=== PATIENT | female | born 1950 | race Caucasian/White ===

== ENCOUNTER 2022-04-10 07:57 | Day surgery (SDC) | payer OTHER ==
[~2022-04-10] VITALS: Ht 162.6 cm; Wt 77.1 kg
[2022-04-10] MEDS ORDERED: BENZOCAINE 20% GEL 32 GM BOTTLE MM ONE (07:58)
[2022-04-10] MEDS ORDERED: NS 100 ML BAG IV ONE (07:58)
[2022-04-10] MEDS ORDERED: ARTICAINE HCL/EPINEPHRINE 4%/1:200,000 BIT 1.7 ML CARTRIDGE IJ ONE (07:58)
[2022-04-10] MEDS ORDERED: NS IRRIG SOLN 1000 ML IR ONE (07:58)
[2022-04-10 14:10] VITALS: BP_SYST 132
== END 2022-04-10 12:10 | disposition home or self-care (01) ==
LOC: SDS 07:57 → SMU 08:04 → SDS 12:10
PROVIDERS: ATTEND Dentist General Practice
DX: M27.2 Inflammatory conditions of jaws (principal); M89.8X0 Other specified disorders of bone, multiple sites; K05.5 Other periodontal diseases; M26.603 Bilateral temporomandibular joint disorder, unspecified; I24.9 Acute ischemic heart disease, unspecified; K08.429 Partial loss of teeth due to periodontal diseases, unspecified class; K05.222 Aggressive periodontitis, generalized, moderate; Z86.73 Personal history of transient ischemic attack (TIA), and cerebral infarction without residual deficits; Z99.2 Dependence on renal dialysis; M06.9 Rheumatoid arthritis, unspecified; Z20.822 Contact with and (suspected) exposure to COVID-19; Z96.643 Presence of artificial hip joint, bilateral; Z96.652 Presence of left artificial knee joint; Z98.1 Arthrodesis status; Z79.899 Other long term (current) drug therapy
CPT/HCPCS: 21026; 21210; 21248; 36415; 70140; 87426; C1713